=== PATIENT | female | born 1965 | race Caucasian/White ===

== ENCOUNTER 2020-01-25 19:00 | Emergency (ER) | payer OTHER, SELFPAY ==
--- NOTE | 2020-01-25 19:20 | XR_ITS ---
PROCEDURE: XR FOOT LT MIN 3V CLINICAL INDICATION: pain COMPARISON: No exams were available for comparison FINDINGS: No fracture or dislocation. No lytic or blastic change. There is normal mineralization. The joint spaces are well-preserved. No significant degenerative/arthritic changes. No erosive changes evident. Other findings:There is mild prominence of the soft tissues along the heel pad region. IMPRESSION: No acute bony finding. Mild prominence of soft tissue along the heel pad of questionable clinical significance. Clinical correlation required. No radiopaque foreign body or soft tissue gas Dictated by: Tom Haywood MD 01/26/2020 08:02 Electronically signed by Tom Haywood MD in [place] 01/26/2020 08:02
[2020-01-25 19:21] VITALS: BP 140/80; PULSE 93; RESP 20; TEMP 36.7; O2SAT 97; BMI 28.3
--- NOTE | 2020-01-25 19:37 | HMH.EDUTC ---
[facility] [place] Clinical Impression: Pain of left heel Disposition: Home, Self-Care Condition on Discharge: Good Instructions: DI for Foot Pain Additional Instructions: Rest the extremity, apply ice for 15 minutes as tolerated three or four times per day, Wear the joel wrap for compression, Elevate the extremity as tolerated while you are resting. Take ibuprofen for pain. I sent in a prescription to your pharmacy. Follow up with Dr. Mistry. I put in a referral but you need to call her office and schedule an appointment. Follow up with your regular doctor. GO TO THE ER FOR ANY WORSENING SYMPTOMS Prescriptions: Ibuprofen [Ibuprofen 600mg Tablet] 600 mg PO Q6HP PRN #30 tab PRN Reason: Mild Pain Transmission Status: Received by [facility] [facility] #[id number] Referrals: PCPMervat [Primary Care Provider] - Karen Mistry DPM [Staff Physician] - Time of Disposition: 19:44 Medical Decision Making - Medical Records Medical records reviewed: No: I reviewed the patient's medical records. - Dioni Inquiry Pt receiving controlled substance: No Vital Signs: 01/25/20 19:21 01/25/20 19:49 Temperature 98.1 F 98.1 F Temperature Source Oral Pulse Rate 93 H Pulse Rate [Left Brachial] 93 H Respiratory Rate 20 20 Blood Pressure 140/80 Blood Pressure [Left Arm] 140/80 Blood Pressure Mean [Left Arm] 100 Blood Pressure Source [Left Arm] Automatic Cuff Blood Pressure Position [Left Arm] Sitting 02 Sat by Pulse Oximetry 97 Oxygen Delivery Method Room Air Orders (Tests/Meds): ED MEDICATIONS Discontinued Medications Generic Name Dose Route Start Last Admin Trade Name Freq PRN Reason Stop Dose Admin Ibuprofen 800 mg 01/25/20 19:43 01/25/20 19:48 Motrin 400mg Tablet PO 01/25/20 19:44 800 mg ONCE ONE Administration - Radiology Data #1 Image(s): Foot/Toes Image Reviewed: Yes I reviewed the patient's radiology image, Yes I have reviewed radiologist's interpretation Preliminary Findings: No Fracture Seen PROCEDURE: XR FOOT LT MIN 3V CLINICAL INDICATION: pain COMPARISON: No exams were available for comparison FINDINGS: No fracture or dislocation. No lytic or blastic change. There is normal mineralization. The joint spaces are well-preserved. No significant degenerative/arthritic changes. No erosive changes evident. Other findings:There is mild prominence of the soft tissues along the heel pad region. IMPRESSION: No acute bony finding. Mild prominence of soft tissue along the heel pad of questionable clinical significance. Clinical correlation required. No radiopaque foreign body or soft tissue gas Dictated by: Tom Haywood MD 01/26/2020 08:02 Electronically signed by Tom Haywood MD in [place] 01/26/2020 08:02 [facility] [place] - General Stated complaint: AO 0713 injured L heel Time Seen by Provider: 01/25/20 19:25 Mode of Arrival: Ambulatory Source of Information: Patient Limitations: No Limitations Description of Symptoms (Recalled from Triage Doc. by RN): PATIENT C/O LEFT HEEL PAIN THAT RADIATES UP LEG WHEN WEIGHT IS PUT ON IT. UNKNOWN INJURY, STATES IT BEGAN HURTING WHILE SHE WAS WORKING HEENT Symptoms (Recalled from RN notes): No Resp Symptoms (Recalled from RN notes): No Skin Symptoms (Recalled from RN notes): No MS Symptoms (Recalled from RN notes): Yes Functional Status (Recalled from RN notes): WNL - History of Present Illness Provider Complaint: She c/o left foot pain since earlier today. She denies any known injury. She states that she has had to walk a lot in her life and her job recently. - Related Data Previous Rx's Medication Instructions Recorded Ibuprofen [Ibuprofen 600mg 600 mg PO Q6HP PRN #30 tab 01/25/20 Tablet] Allergies Allergy/AdvReac Type Severity Reaction Status Date / Time Penicillins Allergy Verified 01/25/20 19:25 - Worker's Comp Is this a Worker's Comp case?: No [facility] History - Hepatitis A Screen
[2020-01-25 19:49] VITALS: BP 140/80; PULSE 93; RESP 20; TEMP 36.7; O2SAT 97
== END 2020-01-25 19:50 | disposition home or self-care (01) ==
PROVIDERS: Emergency Provider Nurse Practitioner Family
DX: M79.672 Pain in left foot (principal); F17.210 Nicotine dependence, cigarettes, uncomplicated; Z88.0 Allergy status to penicillin
CPT/HCPCS: 73630; 99201

== ENCOUNTER 2020-06-03 17:17 | Emergency (ER) | payer OTHER, SELFPAY ==
[2020-06-03 17:50] VITALS: BP 142/79; PULSE 85; RESP 18; TEMP 36.6; O2SAT 98; BMI 28.3
--- NOTE | 2020-06-03 18:09 | HMH.EDUTC ---
[facility] [place] Impression: Exposure to COVID-19 virus Disposition: Home, Self-Care Condition on Discharge: Good Instructions: Preventing the Spread of Coronavirus Discharge Instructions Additional Instructions: Drink plenty of fluids. Take tylenol for pain or fever. Return if you begin to have difficulty breathing. Follow up with your regular doctor. GO TO THE ER FOR ANY WORSENING SYMPTOMS Referrals: PCP,No [Primary Care Provider] - Time of Disposition: 18:09 Medical Decision Making - Medical Records Medical records reviewed: No: I reviewed the patient's medical records. - Dioni Inquiry Pt receiving controlled substance: No Vital Signs: 06/03/20 17:50 06/03/20 18:18 Temperature 97.8 F 97.8 F Temperature Source Oral Pulse Rate 85 Pulse Rate [Right Brachial] 85 Respiratory Rate 18 18 Blood Pressure 142/79 H Blood Pressure [Right Arm] 142/79 H Blood Pressure Mean [Right Arm] 100 Blood Pressure Source [Right Arm] Automatic Cuff Blood Pressure Position [Right Arm] Sitting 02 Sat by Pulse Oximetry 98 Oxygen Delivery Method Room Air Orders (Tests/Meds): ORDERS Category Date Time Status Covid-19 Nasal PCR Sendout Stat Lab 06/03/20 17:55 Re[place] [facility] [place] - General Stated complaint: covid exposure Time Seen by Provider: 06/03/20 18:09 - History of Present Illness Provider Complaint: She states that she was exposed to covid and needs a test - Related Data Previous Rx's Medication Instructions Recorded Ibuprofen [Ibuprofen 600mg 600 mg PO Q6HP PRN #30 tab 01/25/20 Tablet] Allergies Allergy/AdvReac Type Severity Reaction Status Date / Time Penicillins Allergy Verified 01/25/20 19:25 [facility] History - Hepatitis A Screen Attestation statement:: This patient has been screened for Hepatitis A risk factors. I have reviewed the patient's past medical history: Yes Medical History: Denies:: Cancer, Diabetes Mellitus Type 1, Diabetes Mellitus Type 2, MRSA Laterality Cases: Bilateral: Tonsillectomy Amputation: No - Social History Smoking Status: Current every day smoker Tobacco Type: cigarettes # Packs/Day (cigarettes): 1 Alcohol Intake: never Alcohol Intake Frequency:: a few times a week Occupational Status: other ROS Obtained: Yes All systems reviewed & no additional complaints - Constitutional Constitutional: Reports system reviewed and no additional complaints, except as docu - Eyes Eyes: Reports system reviewed and no additional complaints, except as docu - ENT Ears, Nose, Mouth, and Throat: Reports system reviewed and no additional complaints, except as docu - Cardiovascular Cardiovascular: Reports system reviewed and no additional complaints, except as docu - Respiratory Respiratory: Yes system reviewed and no additional complaints, except as docu - Gastrointestinal Gastrointestingal: Reports: system reviewed and no additional complaints, except as docu Physical Exam - General General appearance: alert, in no apparent distress - Head Head exam: atraumatic, normocephalic, normal inspection - Eye Eye exam: Present: normal appearance, PERRL, EOMI - ENT ENT exam: Present: normal exam, normal oropharynx, mucous membranes moist, TM's normal bilaterally, normal external ear exam - Neck Neck exam: Present: normal inspection, full ROM, trachea midline. Absent: meningismus, lymphadenopathy - Chest Chest inspection: Present: normal inspection, symmetric chest wall rise. Absent: tenderness - Respiratory Respiratory exam: Present: normal lung sounds bilaterally. Absent: respiratory distress - Cardiovascular Cardiovascular exam: Present: regular rate, normal rhythm. Absent: JVD - Abdominal Exam Abdominal exam: Present: soft, normal bowel sounds. Absent: distention, tenderness, guarding - Extremities Exam Extremities exam: Present: normal inspection, full ROM, normal capillary refill. Absent:
[2020-06-03 18:18] VITALS: BP 142/79; PULSE 85; RESP 18; TEMP 36.6; O2SAT 98
[2020-06-05 09:19] LABS: Covid-19 Nasal PCR Sendout UK Not Detected
== END 2020-06-03 18:20 | disposition home or self-care (01) ==
PROVIDERS: Emergency Provider Nurse Practitioner Family
DX: Z20.828 Contact with and (suspected) exposure to other viral communicable diseases (principal); F17.210 Nicotine dependence, cigarettes, uncomplicated; Z88.0 Allergy status to penicillin
CPT/HCPCS: 99201; U0003

== ENCOUNTER 2021-03-06 16:10 | Emergency (ER) | payer OTHER, SELFPAY ==
[2021-03-06 16:50] VITALS: PULSE 96; RESP 16; TEMP 37.2; O2SAT 96; BMI 26.4
--- NOTE | 2021-03-06 17:45 | HMH.EDUTC ---
[facility] – [place] Disposition Clinical Impression: Paronychia of finger Qualifiers: Laterality: left Qualified Code(s): L03.012 - Cellulitis of left finger Disposition: Home, Self-Care Condition on Discharge: Good Instructions: Paronychia, DI for Paronychia Additional Instructions: Keep the wounds clean and dry. Follow up with your regular doctor. Take the antibiotics as directed and apply the topical antibiotics as directed. GO TO THE ER FOR ANY WORSENING SYMPTOMS Prescriptions: Sulfamethoxazole/Trimethoprim [Bactrim DS tablet] 1 each PO BID 10 Days #20 tab Transmission Status: Received by [email or web address] #[id number] Mupirocin [Bactroban 2% Ointment 22gm tube] 1 applicatio TP TID 7 Days #1 tube Transmission Status: Received by [email or web address] # cephALEXin [cephALEXin 500mg capsule] 500 mg PO Q6H 10 Days #40 cap Transmission Status: Received by [email or web address] # Referrals: Provider,Referral, [Primary Care Provider] - Forms: Work/School Release Time of Disposition: 17:48 Medical Decision Making - Medical Records Medical records reviewed: No: I reviewed the patient's medical records. - Dioni Inquiry Pt receiving controlled substance: No Vital Signs: 03/06/21 16:50 03/06/21 17:54 Temperature 98.9 F 98.7 F Temperature Source Oral Oral Pulse Rate 84 Pulse Rate [Right] 96 H Respiratory Rate 16 16 Blood Pressure 114/70 Blood Pressure Source Automatic Cuff Blood Pressure Position Sitting 02 Sat by Pulse Oximetry 96 Oxygen Delivery Method Room Air Room Air Orders (Tests/Meds): ORDERS Category Date Time Status Wound Culture and Gram Stain Stat Micro 03/06/21 17:40 Results [facility] – [place] HPI - General Stated complaint: possible infection L finger Time Seen by Provider: 03/06/21 17:00 Mode of Arrival: Ambulatory Source of Information: Patient Limitations: No Limitations Description of Symptoms (Recalled from Triage Doc. by RN): pt c/o infected left ring finger HEENT Symptoms (Recalled from RN notes): No Resp Symptoms (Recalled from RN notes): No Skin Symptoms (Recalled from RN notes): Yes (infected finger) MS Symptoms (Recalled from RN notes): No Functional Status (Recalled from RN notes): na - History of Present Illness Provider Complaint: She has an infection in the corner of her left middle finger medial nail fold. This has been present for the past 1 day. - Related Data Previous Rx's Medication Instructions Recorded Ibuprofen [Ibuprofen 600mg 600 mg PO Q6HP PRN #30 tab 01/25/20 Tablet] Mupirocin [Bactroban 2% Ointment 1 applicatio TP TID 7 Days #1 tube 03/06/21 22gm tube] Sulfamethoxazole/Trimethoprim 1 each PO BID 10 Days #20 tab 03/06/21 [Bactrim DS tablet] cephALEXin [cephALEXin 500mg 500 mg PO Q6H 10 Days #40 cap 03/06/21 capsule] Allergies Allergy/AdvReac Type Severity Reaction Status Date / Time Penicillins Allergy Verified 01/25/20 19:25 - Worker's Comp Is this a Worker's Comp case?: No [facility] History - Hepatitis A Screen Drug use history?: No High risk sexual behaviors?: No History of sexually transmitted infection?: No Currently employed?: No Childcare worker?: No Do you have indoor plumbing?: Yes Do you have electricity?: Yes Attestation statement:: This patient has been screened for Hepatitis A risk factors. I have reviewed the patient's past medical history: Yes Medical History: Denies:: Cancer, Diabetes Mellitus Type 1, Diabetes Mellitus Type 2, MRSA Laterality Cases: Bilateral: Tonsillectomy Amputation: No - Social History Smoking Status: Current every day smoker Tobacco Type: cigarettes # Packs/Day (cigarettes): 1 Alcohol Intake: never Alcohol Intake Frequency:: a few times a week Occupational Status: other ROS Obtained: Yes All systems reviewed & no additional complaints - Constitutional Constitutional: Denies chills, Denies fever(s) - Musculoskeletal Musculoskeletal: Reports as
[2021-03-06 17:54] VITALS: BP 114/70; PULSE 84; RESP 16; TEMP 37.1; O2SAT 98
== END 2021-03-06 17:56 | disposition home or self-care (01) ==
PROVIDERS: Emergency Provider Nurse Practitioner Family
DX: L03.012 Cellulitis of left finger (principal); F17.210 Nicotine dependence, cigarettes, uncomplicated
CPT/HCPCS: 10060; 87070; 87077; 87186; 87205; 99202; G0463